=== PATIENT | female | born 1955 | race American Indian/Alaskan Native ===

== ENCOUNTER 2016-09-12 15:59 | Emergency (ER) | payer SELFPAY ==
[2016-09-12 16:22] VITALS: BP 137/83
--- NOTE | 2016-09-12 18:10 | Emergency Department Report ---
Chief Complaint: Abdominal Pain Stated Complaint: FIBROID/PELVIC PAIN Time Seen by Provider: 09/12/16 18:04 - HPI History of Present Illness: Patient comes today for concern of fibroids that may be turning into cancer. Patient denies any fever chills no vaginal discharge no weight loss. She just wants to see if she has cancer of the uterus. Patient does report a past medical history of fibroid ectomy that had 9 fibroids removed before the age of 40. Now she feels her fibroids her back but they're not bleeding. Patient has decided to follow up with her [employer]EMETERY [employer]NAGER doctor for further evaluation - Exam Vital Signs: Vital Signs 09/12/16 16:16 Temperature 98.7 F Pulse Rate 83 Respiratory 22 Rate Blood Pressure 137/83 O2 Sat by Pulse 98 Oximetry Physical Exam: SHe is alert and oriented. She is in no obvious pain or discomfort. MSE screening note: Focused history and physical exam performed. 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 ED Disposition for MSE Condition: Stable Instructions: Abdominal Pain (ED)
== END 2016-09-12 18:30 | disposition left against medical advice (07) ==
LOC: ED 15:59
DX: R10.2 Pelvic and perineal pain (principal); Z53.21 Procedure and treatment not carried out due to patient leaving prior to being seen by health care provider

== ENCOUNTER 2018-03-23 11:24 | Emergency (ER) | payer SELFPAY ==
[2018-03-23 11:53] VITALS: BP 122/69
[2018-03-23 12:25] LABS: Basophils # (Auto) 0.1 K/mm3 (0.0-0.1); Eosinophils # (Auto) 0.1 K/mm3 (0.0-0.4); Eosinophils % (Auto) 1.8 % (0.0-4.3); Hematocrit 40.4 % (30.3-42.9); Hemoglobin 13.7 gm/dl (10.1-14.3); Lymphocytes # (Auto) 1.2 K/mm3 (1.2-5.4); Lymphocytes % (Auto) 22.4 % (13.4-35.0); Mean Corpuscular HGB Conc 34 % (30-34); Mean Corpuscular Hemoglobin 30 pg (28-32); Mean Corpuscular Volume 89 fl (79-97); Monocytes # (Auto) 0.4 K/mm3 (0.0-0.8); Monocytes % (Auto) 6.8 % (0.0-7.3); Platelet Count 400 K/mm3 (140-440); Red Blood Count 4.55 M/mm3 (3.65-5.03); Red Cell Distribution Width 14.2 % (13.2-15.2)
[2018-03-23 12:38] LABS: BUN/Creatinine Ratio 24; Blood Urea Nitrogen 17 mg/dL (7-17); Calcium 9.9 mg/dL (8.4-10.2); Hemolysis Index 5
[2018-03-23 12:49] LABS: Bilirubin,Urine NEG (Negative); Blood,Urine MOD (Negative); Color,Urine Yellow (Yellow); Mucus,Urine FEW /HPF; Protein,Urine <15 mg/dL mg/dL (Negative); Urobilinogen,Urine < 2.0 mg/dL (<2.0)
--- NOTE | 2018-03-23 13:22 | Emergency Department Report ---
HPI - General Chief Complaint: Abdominal Pain Time Seen by Provider: 03/23/18 13:12 - HPI HPI: 62-year-old female presents to the emergency department with complaint of increased urinary frequency and left lower back pain has been going on since Friday, yesterday. She denies any dysuria, vaginal bleeding or discharge, fever, nausea or vomiting. She denies any numbness or paresthesias or any neurological deficits. The patient says that she had some type of finger infection that she thought was fungal but in order to treat that she took one of her mother's old Levaquin pills. She says that this did help clear up her finger but then she started having these symptoms. She otherwise just has a past medical history of a fibroid "on my left side." She does not currently have a primary care physician. She is living in [facility] near [place]. ED Past Medical Hx - Past Medical History Additional medical history: Fibroid - Social History Smoking Status: Never Smoker Substance Use Type: None - Medications Home Medications: Home Medications Medication Instructions Recorded Confirmed Last Taken Type Ibuprofen [Motrin] 600 mg PO Q8H PRN #20 tablet 03/23/18 Unknown Rx ED Review of Systems ROS: Stated complaint: FREQUENT URINATION/LOWER BACK Other details as noted in HPI Comment: All other systems reviewed and negative Constitutional: denies: chills, fever Eyes: denies: eye pain, eye discharge, vision change ENT: denies: ear pain, throat pain Respiratory: denies: cough, shortness of breath, wheezing Cardiovascular: denies: chest pain, palpitations Gastrointestinal: denies: abdominal pain, nausea, diarrhea Genitourinary: frequency. denies: dysuria Musculoskeletal: back pain. denies: arthralgia Skin: denies: rash, lesions Neurological: denies: headache, weakness, paresthesias Physical Exam - Physical Exam Vital Signs: Vital Signs 03/23/18 11:47 Temperature 98.4 F Pulse Rate 78 Respiratory 16 Rate Blood Pressure 122/69 O2 Sat by Pulse 98 Oximetry Physical Exam: GENERAL: The patient is well-developed well-nourished. HENT: Normocephalic. Atraumatic. Patient has moist mucous membranes. EYES: Extraocular motions are intact. Pupils equal reactive to light bilaterally. NECK: Supple. Trachea is midline. CHEST/LUNGS: Clear to auscultation. There is no respiratory distress noted. HEART/CARDIOVASCULAR: Regular. There is no tachycardia. There is no murmur. ABDOMEN: Abdomen is soft, nontender. Patient has normal bowel sounds. There is no abdominal distention. SKIN: Skin is warm and dry. NEURO: The patient is awake, alert, and oriented. The patient is cooperative. The patient has no focal neurologic deficits. The patient has normal speech and gait. MUSCULOSKELETAL: There is no tenderness or deformity. There is no limitation range of motion. There is no evidence of acute injury. BACK: No midline thoracic or lumbar tenderness to palpation, step-off or deformity. There is some reproducible left-sided lumbar paraspinal tenderness with associated tight musculature. ED Course Vital Signs 03/23/18 11:47 Temperature 98.4 F Pulse Rate 78 Respiratory 16 Rate Blood Pressure 122/69 O2 Sat by Pulse 98 Oximetry ED Medical Decision Making - Lab Data Result diagrams: 03/23/18 12:11 03/23/18 12:11 - Medical Decision Making Patient began with some left-sided lower abdominal pain to the paraspinal region. No midline tenderness, step-off or deformity. No trauma. Patient does not have any numbness or Paresthesias, problems with bowel or bladder or any neurological deficits. She has low suspicion for any of the emergent back condition such as cauda equina, epidural abscess or cord compression syndrome. Patient has been ambulatory without any instability. Since there was no trauma and she has no deficits, I did not feel that any imaging was necessary at this time, and this is on top of the fact that this is not midline pain. Patient's labs were unremarkable. She will placed on some NSAIDs and has been given a referral fo Primary care physicians for follow-up. She'll return to the ER with any worsening or symptoms or any acute distress. - Differential Diagnosis lumbar strain, muscle spasm, UTI Critical Care Time: No Critical care attestation.: If time is entered above; I have spent that time in minutes in the direct care of this critically ill patient, excluding procedure time. ED Disposition Clinical Impression: Increased urinary frequency Back pain Qualifiers: Back pain location: low back pain Chronicity: acute Back pain laterality: left Sciatica presence: without sciatica Qualified Code(s): M54.5 - Low back pain Disposition: TO HOME OR SELFCARE Is pt being admited?: No Condition: Stable Instructions: Back Pain (ED) Additional Instructions: Please follow up with a primary care physician in the next few days. Return to the emergency Department with any worsening of your symptoms or any acute distress. Prescriptions: Ibuprofen [Motrin] 600 mg PO Q8H PRN #20 tablet PRN Reason: Pain Referrals: PRIMARY CARE, [Primary Care Provider] - 3-5 Days MYA HSU MD [Staff Physician] - 3-5 Days NAKUL CURTIS MD [Staff Physician] - 3-5 Days Time of Disposition: 13:21
== END 2018-03-23 13:25 | disposition home or self-care (01) ==
LOC: ED 11:24
DX: M54.5 Low back pain (principal); R35.0 Frequency of micturition
CPT/HCPCS: 36415; 80048; 81001; 85025; 87086; 99283